=== PATIENT | male | born 1940 | race Caucasian/White ===

== ENCOUNTER 2021-10-13 20:24 | Inpatient (IN) | payer OTHER, MEDICARE ==
[~2021-10-13] VITALS: Ht 180.3 cm; Wt 74.0 kg
[2021-10-13 21:07] LABS: BASO % 0.2 % (0.0-2.0); GRAN # 15.1 K/mm3 (1.4-6.5); GRAN % 87.7 % (42.2-75.2); HEMOGLOBIN 12.6 g/dl (13.5-18.0); LYMPH # 0.8 K/mm3 (1.2-3.4); LYMPH % 4.6 % (20.0-51.0); MEAN CELL VOLUME 90 fl (80.0-100.0); MEAN CORPUSCULAR HEMOGLOBIN 31 pg (27-31); MEAN CORPUSCULAR HGB CONC 34 g/dl (33.0-37.0); MEAN PLATELET VOLUME 11.8 fl (7.4-10.4); MONO # 1.2 K/mm3 (0.1-0.6); PLATELET COUNT 268 K/mm3 (130-400); RED BLOOD COUNT 4.06 M/mm3 (4.20-5.60); REDCELL DISTRIBUTION WIDTH-CV 12.2 % (11.5-14.5)
[2021-10-13 21:14] LABS: HEMATOCRIT 36.6 % (42.0-52.0)
[2021-10-13 21:31] LABS: ALBUMIN 3.5 gm/dL (3.4-4.8); BILIRUBIN,TOTAL 1.1 mg/dL (0.2-1.2); CALCIUM 7.8 mg/dL (8.4-10.2); CREATININE, serum 2.94 mg/dL (0.72-1.25); POTASSIUM 3.6 mmol/L (3.5-4.5); TOTAL PROTEIN 6.2 gm/dL (6.2-8.1)
[2021-10-13 22:12] LABS: COLLECTION METHOD CLEAN CATCH
[2021-10-13 22:19] LABS: MUCOUS Present (NOT PRESENT); PH 5 (5-8); SQUAMOUS EPITHELIAL 0-2 /hpf (0-10); URINE APPEARANCE Hazy (CLEAR/HAZY); URINE BACTERIA None Seen /hpf (NONE SEEN); URINE BILIRUBIN Negative (NEGATIVE); URINE BLOOD 3+ (NEGATIVE); URINE COLOR Yellow (YELLOW); URINE GLUCOSE 3+ (NEGATIVE); URINE KETONE 2+ (NEGATIVE); URINE LEUKOCYTE ESTERASE Negative (NEGATIVE); URINE NITRATE Negative (NEGATIVE); URINE PROTEIN(semi-quant) 1+ (NEGATIVE); URINE RBC 0-2 /hpf (0-2); URINE UROBILINOGEN Negative (NEGATIVE)
--- NOTE | 2021-10-13 22:47 | NUR ---
Report received from ED nurseLissett.
[2021-10-13 23:00] VITALS: BP 83/57; PULSE 116; TEMP 98.3
--- NOTE | 2021-10-13 23:00 | NUR ---
Patient arrives to ICU room 7 via ED stretcher. Patient is not alert. He is obtunded, unresponsive to verbal stimuli, responding only with withdrawal to pain. He does not open eyes to speech or painful stimuli and he is non-verbal at this time. Patient arrives on room air, satting 100%, although he is extremely sonorous with respirations mid 20s, low 30s. Other vital signs within normal limits. A 16Fr samaniego catheter is in place draining clear yellow urine. IV antibiotics finishing as patient arrives. He has an 18G peripheral to the left wrist and a 20G peripheral to the right hand. Labs immediately obtained upon arrival. Initial blood glucose via lab is 674; insulin drip initiated. Esperanza, hospitalist, aware of patient's arrival and is at bedside. Patient brought in by friend, Ace Ruggiero, who is not present at time of patient's arrival to the ICU. No other friend/family contact on chart at this time. Patient unable to answer questions regarding allergies, history or vaccination status.
[2021-10-13 23:36] LABS: CALCIUM 7.9 mg/dL (8.4-10.2); CREATININE, serum 2.77 mg/dL (0.72-1.25); MAGNESIUM 2.5 mg/dL (1.6-2.6); POTASSIUM 3.9 mmol/L (3.5-4.5)
[2021-10-14] VITALS (553 sets, daily range): BP systolic 114–134; BP diastolic 53–84; PULSE 91–117; TEMP 98.4–100.7; O2SAT 85–100
--- NOTE | 2021-10-14 01:30 | NUR ---
This RN called Dr. Ruggiero who brought patient into ER and has rapport and friendship with patient. Asked Dr. Ruggiero if he had any contact information for family members of patient or if patient had living will or DPOA. Dr. Ruggiero stated he was unsure of patient code status, living will or DPOA. Also stated patients has siblings that live out of state and didn't have their contact information. Stated that he would attempt to call the person that lives with patient and see if he can get family contact information for hospital.
[2021-10-14 01:34] LABS: ARTERIAL BLD GAS O2 SATURATION 89.6 % (92-100); ARTERIAL BLD GAS TCO2 CT 15.9; ARTERIAL BLOOD GAS BASE EXCESS -9.7 (-2-2); ARTERIAL BLOOD GAS PCO2 29.7 mmHg (35-45); ARTERIAL BLOOD GAS PO2 61.2 mmHg (80-100); ARTERIAL BLOOD GAS pH 7.32 (7.35-7.45)
--- NOTE | 2021-10-14 02:00 | NUR ---
At approximately 0110, notified by tablet technician patient's HR irregular, alternating between ST and afib RVR with a rate up to the 160s at times. Excessive ectopy and PVCs noted in rhythm. Patient admitted with sonorous respirations, however, this RN noted patient's respirations to be becoming more labored with use of excessory muscles. RT, Radha notified of concerns at 0117, requesting that an EKG also be obtained. [facility] physician, Dr. Carcamo notified at 0127 of the above. Received orders for ABG, EKG, and troponin. This RN expressed concerns of potential intubation. RT obtaining blood gas at 0130 when patient's breathing effort rapidly declined with O2 saturation noted to begin dropping. Esperanza, hospitalist, notified at 0132; patient's oxygen saturation 79% at time of call. Esperanza contacted ER physician Dr. Goff for rapid intubation. Patient intubated with a 7.5 ET tube, located 24 at the lip, at 0145. See EMAR for RSI medication administration. OG placed and chest xray obtained to confirm placement. Vent settings at 0216 are 45% FiO2, PEEP 8, rate 16, with tidal volume of 430. Patient receiving fentanyl and propofol for sedation.
[2021-10-14 02:28] LABS: CALCIUM 7.7 mg/dL (8.4-10.2); CREATININE, serum 2.44 mg/dL (0.72-1.25); POTASSIUM 4.2 mmol/L (3.5-4.5)
[2021-10-14 04:04] LABS: GASTROCCULT POSITIVE; pH GASTRIC CONTENTS 1
[2021-10-14 04:30] LABS: ARTERIAL BLD GAS O2 SATURATION 97.9 % (92-100); ARTERIAL BLD GAS TCO2 CT 17.8; ARTERIAL BLOOD GAS BASE EXCESS -6.8 (-2-2); ARTERIAL BLOOD GAS HCO3 16.9 meq/L (22-26); ARTERIAL BLOOD GAS PO2 110.5 mmHg (80-100); ARTERIAL BLOOD GAS pH 7.38 (7.35-7.45)
[2021-10-14 05:33] LABS: BASO # 0.1 K/mm3 (0.0-0.2); GRAN # 11.9 K/mm3 (1.4-6.5); GRAN % 83.8 % (42.2-75.2); HEMOGLOBIN 11.9 g/dl (13.5-18.0); LYMPH # 1.1 K/mm3 (1.2-3.4); LYMPH % 7.9 % (20.0-51.0); MEAN CELL VOLUME 86 fl (80.0-100.0); MEAN CORPUSCULAR HEMOGLOBIN 32 pg (27-31); MEAN CORPUSCULAR HGB CONC 37 g/dl (33.0-37.0); MEAN PLATELET VOLUME 11.2 fl (7.4-10.4); MONO % 6.9 % (1.7-9.3); PLATELET COUNT 212 K/mm3 (130-400); RED BLOOD COUNT 3.78 M/mm3 (4.20-5.60); REDCELL DISTRIBUTION WIDTH-CV 12.1 % (11.5-14.5)
[2021-10-14 05:34] LABS: HEMATOCRIT 32.4 % (42.0-52.0)
[2021-10-14 05:50] LABS: CALCIUM 7.7 mg/dL (8.4-10.2); CREATININE, serum 2.32 mg/dL (0.72-1.25); POTASSIUM 4.1 mmol/L (3.5-4.5)
--- NOTE | 2021-10-14 05:57 | NUR ---
Patient intubated less than 6 hours ago. No sedation vacation.
--- NOTE | 2021-10-14 07:44 | NUR ---
ALARMS CHECKED AND WORKING.
--- NOTE | 2021-10-14 09:24 | NUR ---
brush worker contacted Effie geriatric social work professor at the [facility] and requested advance directives, son's information, and medical records be faxed to ICU. Will await her call to see what information they have. Worker contacted patient's sister, Dayanna in [place], [place] #[phone] and provided information on attempts to establish legal next of kin as patient is currently ventilated. Dayanna states she believes that patient is and has 1 living son (Gabriel Mejia) and 1 son. Dayanna stated that patient has 2 sisters and 2 brothers living. Dayanna will contact her sister to see if they can produce any further information about Gabriel. Dayanna stated that patient has been estranged from all of the family members and that she last had a brief conversation with hubert at [facility]. Dayanna is aware that if written advance directives and son cannot be located, the siblings are decision makers in patient's absence to do so. Worker met with Dr Ruggiero, patient's retired primary care provider and personal friend and provided information on legal next of kin.
--- NOTE | 2021-10-14 10:15 | NUR ---
Rosa with [facility] in [facility] confirms that they do not have any advance directives, no information on patient's son. Rosa provided the number to Itz (brother) [phone]. Rosa will request that the [place] clinical team fax updates to the ICU.
--- NOTE | 2021-10-14 10:16 | NUR ---
Patient currently on mechanical ventilator. Dr. Ruggiero present at patient's bedside and is awaiting to speak with the doctor. Patient lives in [place].Patient has (1) roommate named Avery ([phone]) and he doctor at the [facility]. Patient has two sisters: Dayanna ([phone]) located in [place] Linda ([phone]) located in [place] PATSY Castanon contacts Dayanna who states that the patient has (1) living child named Gabriel Mejia who the patient is estranged from. In addition he also has (2) brothers. Per Dayanna, Gabriel's location is unknown and she does not have a contact phone number for him. Dayanna states that due to Linda's health problems, she is going to let her sleep a little bit and then reach out to her. Dayanna will call us back once she speaks with Linda. Dayanna states " He has always said that when he dies, everything will go to Avery". PATSY Castanon reaches out to Rosa ([facility]) and requests patient's health history, medications and any DPOA-HC paperwork on the patient. This contact's the patient's roommate Avery for more information. Avery reports that he does not have any DPOA-HC paperwork and is unaware of the patient ever creating any. States that they have verbally talked about it but that they had not gotten around to formally creating one. Avery states that he and the patient's sister had been talking this morning and that she told him what she told PATSY Louise that "everything falls to Avery".Education provided to Avery that if nothing has been legally established listing him as the patient's DPOA-HC, that he is not the patient's HC agent and that legally it falls to the patient's bloodline. Avery verbalizes his understanding of the above. Avery states that the patient has never mentioned Christopher to him and that he was unaware that the patient had a child. Avery is in possession of the patient's phone and was unable to find any contact information for Gabriel. Avery does remember the patient mentioning "something about someone living in [place]", but could not provide who the patient was speaking about.
[2021-10-14 11:04] LABS: CALCIUM 7.7 mg/dL (8.4-10.2); CREATININE, serum 2.07 mg/dL (0.72-1.25); POTASSIUM 3.2 mmol/L (3.5-4.5)
[2021-10-14 11:15] LABS: TROPONIN-I 1.752 ng/mL (0.00-0.033)
--- NOTE | 2021-10-14 14:41 | NUR ---
PTs opening eyes and responding to name. PT is coughing against ventilator sedation then titrated appropriately per order
--- NOTE | 2021-10-14 16:06 | NUR ---
RT NOT AVAIL
--- NOTE | 2021-10-14 20:09 | NUR ---
Assessment complete and charted. Intubated with minimal response. Repositioned. Oral care complete.
[2021-10-15] VITALS (561 sets, daily range): BP systolic 115–141; BP diastolic 57–73; PULSE 108–118; TEMP 98.3–98.8; O2SAT 33–100
[2021-10-15 05:01] LABS: ARTERIAL BLD GAS TCO2 CT 20.5; ARTERIAL BLOOD GAS BASE EXCESS -4.6 (-2-2); ARTERIAL BLOOD GAS HCO3 19.5 meq/L (22-26); ARTERIAL BLOOD GAS PCO2 33.2 mmHg (35-45); ARTERIAL BLOOD GAS PO2 93.4 mmHg (80-100); ARTERIAL BLOOD GAS pH 7.39 (7.35-7.45)
[2021-10-15 06:31] LABS: CALCIUM 7.6 mg/dL (8.4-10.2); CREATININE, serum 1.88 mg/dL (0.72-1.25); POTASSIUM 3.8 mmol/L (3.5-4.5)
--- NOTE | 2021-10-15 07:23 | NUR ---
Report given to NURY Carvalho
--- NOTE | 2021-10-15 10:45 | NUR ---
PT PLACED ON CPAP TRIAL 5/5 35% AT 0815 AND WAS VERY SUCCESFUL. EXTUBATION WAS AT 1017 AND PT PLACED ON 5LOM AND THEN WEANED TO ROOM AIR WHERE SATURATIONS WERE GREATER THAN 97%.
--- NOTE | 2021-10-15 11:00 | NUR ---
Dr. Kingsley stopped sedation this morning in order to assess patient's mental status and ability to spontaneously breathe. Patient was awake and alert and was extubated at 1017 with no complications.
[2021-10-15 11:06] LABS: HEMOGLOBIN 10.9 g/dl (13.5-18.0); MEAN CORPUSCULAR HEMOGLOBIN 32 pg (27-31); MEAN CORPUSCULAR HGB CONC 35 g/dl (33.0-37.0); MEAN PLATELET VOLUME 12.8 fl (7.4-10.4); PLATELET COUNT 168 K/mm3 (130-400); RED BLOOD COUNT 3.43 M/mm3 (4.20-5.60)
[2021-10-15 11:13] LABS: HEMATOCRIT 31.2 % (42.0-52.0); MEAN CELL VOLUME 91 fl (80.0-100.0)
[2021-10-15] MEDS ORDERED: PROSCAR 5MG5 MG PO (17:43)
[2021-10-15] MEDS ORDERED: ASPIRIN 32325 MG/TAB PO (17:49)
[2021-10-15] MEDS ORDERED: GLUCOTROL 5M5 MG/TAB PO (17:51)
[2021-10-15] MEDS ORDERED: ADVIL200 MG PO (17:52)
[2021-10-15] MEDS ORDERED: PRINIVIL10 MG PO (18:00)
[2021-10-15] MEDS ORDERED: GLUCOPHAGE1000 MG PO (18:01)
[2021-10-15] MEDS ORDERED: ZOCOR 20MG20 MG PO (18:02)
--- NOTE | 2021-10-15 20:42 | NUR ---
Patient alert but confused. Attempted to climb out of bed. Bed alarm in place. Easily redirected. Denies needs. Repositioned. Call light in reach.
[2021-10-16] VITALS (331 sets, daily range): BP systolic 123–142; BP diastolic 56–81; PULSE 74–104; TEMP 97.5–98.9; O2SAT 31–100
[2021-10-16 04:47] LABS: MEAN CELL VOLUME 92 fl (80.0-100.0); MEAN CORPUSCULAR HGB CONC 34 g/dl (33.0-37.0); MEAN PLATELET VOLUME 11.5 fl (7.4-10.4); PLATELET COUNT 164 K/mm3 (130-400); RED BLOOD COUNT 3.12 M/mm3 (4.20-5.60)
[2021-10-16 04:49] LABS: HEMATOCRIT 28.7 % (42.0-52.0); HEMOGLOBIN 9.8 g/dl (13.5-18.0); MEAN CORPUSCULAR HEMOGLOBIN 31 pg (27-31)
[2021-10-16 05:02] LABS: CREATININE, serum 1.32 mg/dL (0.72-1.25)
--- NOTE | 2021-10-16 07:27 | NUR ---
Report given to NURY Mata
--- NOTE | 2021-10-16 09:18 | NUR ---
REPORT RECEIVED FROM NURY PADGETT. PT HAS BILATERAL SOFT MITTS IN PLACE DUE TO BEING CONFUSED AND PULLING AT LINES. FC TO DEPENDENT DRAINAGE. LANETTE PICC IN PLACE AND INFUSING MEDICAITON; SEE GTT FLOW SHEET. VITAL SIGNS STABLE.
--- NOTE | 2021-10-16 09:52 | NUR ---
Patient alert to person and place, but believes that it is 1975 and trys to get out of bed to "go home". Patient is able to name off sibilings names but not amelia.Due to patient's confusion DPOA-HC not completed. Patient is planned for a Loop procedure and MRI today. RN to obtain consent from Dayanna ([phone]) for procedures and patient will move to medical unit. Phone call returned to Dr. Ruggiero who states he has his N and MA number. Confirmed with him that the patient's home has running water and electricity. Informed him that the hospital has that information. Concerns of Dr. Ruggiero's statement of "I won't perscribe anything to him, i can, i have a license to, but i will leave that to the [facility]" expresses to hospitalist. Referral made to Saba in [facility] for post acute rehab.
--- NOTE | 2021-10-16 14:05 | NUR ---
HEPARIN STOPPED AT THIS TIME PER DR. LEDEZMA'S ORDER.
--- NOTE | 2021-10-16 15:16 | NUR ---
REPORT GIVEN TO NURY MAYEN. TIARRA WILL BE PT'S PRIMARY NURSE ON MEDICAL FLOOR. PT'S CHART AND ORDER'S REVIEWED AND ALL QUESTIONS ANSWERED.
--- NOTE | 2021-10-16 15:48 | NUR ---
PT BROUGHT TO ROOM 354. TRANSFERED FROM WHEELCHAIR TO BED WITH 1 ASSIST. PT WAS SETTLED. SOFT MITT RESTRAINTS PLACED BACK ON HANDS. HANDOFF WAS DONE WITH NURY MAYEN.
--- NOTE | 2021-10-16 17:58 | NUR ---
PT ARRIVED TO ROOM 354 FROM ICU. VSS. PT ALERT BUT NOT ORIENTED. IVF INFUSING VIA PICC. MITTS ON. ORIENTED PT TO ROOM AND CALL LIGHT. DENIES NEEDS AT THIS TIME.
--- NOTE | 2021-10-16 20:00 | NUR ---
Initial shift assessment done- very confused- trying to get out of bed-tried to stand him up and he could not use the urinal so put on BSC with 2 assists-- did void small amount and had a soft stool- uncooperative- not following directions- back to bed- mitts on. PICC to LANETTE with LR at 75cc/hr. Tele on.
--- NOTE | 2021-10-16 22:00 | NUR ---
Remains very confused- trying to get out of bed every 15 minutes- states he has to go to the bathroom or just wants to get up-- tried to reorient,, is voiding small amounts but also having some soft stool each time up- mitts on- pt trying to get his Tele off.
--- NOTE | 2021-10-16 23:55 | NUR ---
Pt getting out of bed consistently- now found patient with Mitts pulled off and patients PICC line is totally out- will call Julieta for orders to help him calm down so he can sleep.
--- NOTE | 2021-10-17 01:00 | NUR ---
Did call Julieta SANCHEZ and informed of his agitation and PICC line pulled out-- Seraquel 25mg given at this time , also pt was bladder scanned and less than 75cc in bladder- Did get up to BSC commode and voided 100cc just a few minutes ago- ,no more soft stool for past hour. INT started to left wrist area,22g- IV fluids infusing at 75cc/hr. Mitts on .
[2021-10-17 04:13] VITALS: BP 135/62; PULSE 75; TEMP 97.9
--- NOTE | 2021-10-17 04:51 | NUR ---
Still getting up to BSC about every hour but is resting in between after the Seraquel was given, Tele on, Roel on- remains confused-
[2021-10-17 06:26] LABS: HEMOGLOBIN 10.6 g/dl (13.5-18.0); MEAN CELL VOLUME 90 fl (80.0-100.0); MEAN CORPUSCULAR HEMOGLOBIN 31 pg (27-31); MEAN CORPUSCULAR HGB CONC 35 g/dl (33.0-37.0); MEAN PLATELET VOLUME 11.4 fl (7.4-10.4); PLATELET COUNT 152 K/mm3 (130-400); RED BLOOD COUNT 3.39 M/mm3 (4.20-5.60); REDCELL DISTRIBUTION WIDTH-CV 12.7 % (11.5-14.5)
[2021-10-17 06:30] LABS: HEMATOCRIT 30.6 % (42.0-52.0)
[2021-10-17 06:46] LABS: CALCIUM 8.2 mg/dL (8.4-10.2); CREATININE, serum 1.32 mg/dL (0.72-1.25); MAGNESIUM 1.7 mg/dL (1.6-2.6); POTASSIUM 4.2 mmol/L (3.5-4.5)
[2021-10-17 08:00] VITALS: BP 132/59; PULSE 78; TEMP 98
--- NOTE | 2021-10-17 09:03 | NUR ---
Primary care nurse contacted Dr. Murguia. no PICC placement. continue with PIVs
--- NOTE | 2021-10-17 09:29 | NUR ---
Patient has set-off bed alarm multiple times attempting to get up. Attempted to pull out IV. Will only sleep for about 30mins before getting up again. Decided by charge nurse that a sitter would be a good option. PCT currently in the room.
--- NOTE | 2021-10-17 10:36 | NUR ---
Patient pulled out IV. Currently in the shower to clean up blood.
[2021-10-17 11:22] VITALS: BP 125/62; PULSE 80; TEMP 97.8
--- NOTE | 2021-10-17 13:30 | NUR ---
Dr Ruggiero contacts this health and social care teacher and discusses attempts to find out what [employer] patient's uses to try and figure out how to pay bills. Dr Ruggiero also found out that patient had not filled medications at [facility], since 2019, had received a flu shot from [facility], however had not filled any prescriptions through them as well as ethology. Worker discussed discharge planning options and possible need for a guardian.
--- NOTE | 2021-10-17 14:11 | NUR ---
Dr. Murguia notified shortly after patient pulled IV out. Fluids were discontinued and Dr. Murguia said a new IV did not need to be placed at this time, since the patient has good oral intake. Dr. Murguia and this RN assessed the patient bottom together. There are multiple reddened/bleeding areas. It appears as though there were blisters present, and they had popped open. There is still 1 blister intact. Silver antimicrobial ointment was applied to the area and an allevyn was placed by Dr. Murguia. Patient has been resting in bed; This RN is allowing the patient to rest to keep the patient from growing agitated.
[2021-10-17 16:05] VITALS: BP 131/65; PULSE 79; TEMP 98.1
--- NOTE | 2021-10-17 16:22 | NUR ---
[facility] declines patient. SNF referrals faxed to the following: [facility], [facility], [facility], [facility], [facility] and [facility].
[2021-10-17 20:01] VITALS: BP 117/55; BP 146/78; PULSE 71; PULSE 75; TEMP 98.2; TEMP 98.7
[2021-10-17 23:57] VITALS: BP 124/72; PULSE 78; TEMP 98.1
[2021-10-18 03:59] VITALS: BP 131/59; PULSE 81; TEMP 98.2
--- NOTE | 2021-10-18 06:00 | NUR ---
ASSESSMENT COMPLETE FOR THIS SHIFT. PT RESTING IN BED SLEEPING. PT A&O X 2. PT DENIED PAIN, PALPITATIONS, N,V, SOB OR DIZZINESS. PT HAD SEVERAL BOUTS OF DIARRHEA THIS SHIFT. GI PANEL NEG. PT CONSTANTLY TRYING TO GET UP BY HIMSELF TO THE RESTROOM, AND NEEDS TO CONSTANTLY BE REMINDED TO USE HIS CALL LIGHT. PT REQUESTED MILK ALL SHIFT. THICKED MILK GIVEN. PT EXPRESSED NO OTHER NEEDS AT THIS TIME. WILL KEEP AN EYE ON PT. BED ALARM ON. CALL LIGHT WITHIN REACH.
[2021-10-18 07:17] VITALS: BP 131/60; PULSE 91; TEMP 97.9
[2021-10-18 07:25] LABS: CALCIUM 8.2 mg/dL (8.4-10.2); CREATININE, serum 1.32 mg/dL (0.72-1.25); POTASSIUM 4.1 mmol/L (3.5-4.5)
--- NOTE | 2021-10-18 08:00 | NUR ---
Patient set off bed alarm to use the bathroom, patient ambulated with the walker to the bathroom. A&Ox4. VSS. No IV access, doctor aware. Denies pain and discomfort. Patient having diarrhea. Independent with feeds. No further needs expressed. Call light within reach. Bed alarm on
[2021-10-18 08:25] LABS: HEMOGLOBIN 10.6 g/dl (13.5-18.0); MEAN CELL VOLUME 92 fl (80.0-100.0); MEAN CORPUSCULAR HEMOGLOBIN 31 pg (27-31); MEAN CORPUSCULAR HGB CONC 34 g/dl (33.0-37.0); MEAN PLATELET VOLUME 11.9 fl (7.4-10.4); PLATELET COUNT 167 K/mm3 (130-400); REDCELL DISTRIBUTION WIDTH-CV 12.6 % (11.5-14.5)
[2021-10-18 08:30] LABS: HEMATOCRIT 31.1 % (42.0-52.0)
[2021-10-18 16:00] VITALS: BP 113/66; PULSE 85; TEMP 97.7
--- NOTE | 2021-10-18 17:47 | NUR ---
Patient has had several loose stools and has been setting off the bed alarm and not waiting on nursing staff to assist with ambulating to the bathroom. Patient A&Ox3. VSS. No IV access, doctor aware. Denies pain, reports an upset stomach. Patient instructed to decrease milk intake. No further needs expressed. Call light within reach. Bed alarm on
[2021-10-18 19:44] VITALS: BP 139/61; PULSE 73; TEMP 98.4
[2021-10-18 23:58] VITALS: BP 142/63; PULSE 79; TEMP 98
[2021-10-19 04:03] VITALS: BP 135/90; PULSE 68; TEMP 97.6
--- NOTE | 2021-10-19 07:15 | NUR ---
ASSESSMENT COMPLETE FOR THIS SHIFT. PT UP TO TO RESTROOM WITH DIARRHEA WHEN I WALKED IN. I ASKED PT IF HE WOULD LIKE SOME IMODIUM. PT STATED YES. IMODIUM GIVEN. DIARRHEA SYMPTOMS IMPROVED. PT DENIED PAIN, PALPITATIONS, N,V, SOB OR DIZZINESS. PT CONTINUES TO GET UP TO THE RESTROOM, WITHOUT WAITING/CALLING FOR HELP. BED ALARM REMAINS ON. PT EXPRESSED NO OTHER NEEDS AT THIS TIME. CALL LIGHT WITHIN REACH.
[2021-10-19 08:02] VITALS: BP 117/68; PULSE 70; TEMP 97.9
--- NOTE | 2021-10-19 08:52 | NUR ---
PT ON POTASSIUM PROTOCOL. NO LABS WERE DRAWN. ORDER PLACED FOR LABS PER PROTOCOL. CALL CALLED AND INFORMED OF ORDER.
[2021-10-19 11:33] VITALS: BP 102/35; PULSE 69; TEMP 98
--- NOTE | 2021-10-19 11:57 | NUR ---
PT UP TO BATHROOM VIA SELF. PT STATES THAT HE IS NOT HAVING ANY PAIN AT THIS TIME. PT STATES THAT HE WOULD LIKE TO HAVE SOME BREAKFAST. CALLED KITCHEN AND IT WAS ORDERED. PT STATES THAT HE IS NOT HAVING ANY DIARRHEA. NO OTHER NEEDS WERE VOICED AT THIS TIME.
--- NOTE | 2021-10-19 16:21 | NUR ---
PT SLEEPING. NO S/S OF DISTRESS/PAIN AT THIS TIME. CALL LIGHT IS WITHIN REACH.
[2021-10-19 17:49] VITALS: BP 121/58; PULSE 67; TEMP 97.9
--- NOTE | 2021-10-19 18:30 | NUR ---
Report received from NURY Galvin; patient slightly confused but this appears to be baseline but is doing well. Patient is waiting for placement at this point as it is unclear where he is going upon discharge; patient resting in room.
--- NOTE | 2021-10-19 18:51 | NUR ---
PT LAYING IN BED ASLEEP. NO S/S OF DISTRESS OR PAIN. CALL LIGHT IS WITHIN REACH.
[2021-10-19 19:47] VITALS: BP 124/58; PULSE 72; TEMP 99.1
[2021-10-20] VITALS (7 sets, daily range): BP systolic 102–127; BP diastolic 42–58; PULSE 67–100; TEMP 98.2–98.8
--- NOTE | 2021-10-20 03:00 | NUR ---
Report given from Maia RN- will take over care at this time,, Pt up to bathroom with standby assist- steady, does not want the lights on- oriented to person and place, but confused as to the overall situation- Tele on,vitals have been stable tonight, no requests, back to bed- wants it dark with the door closed- bed alarm on.
--- NOTE | 2021-10-20 05:50 | NUR ---
Has been resting the past few hours- no requests-VSS,,Up to bathroom again, voiding-steady gait
[2021-10-20 07:01] LABS: BASO % 0.2 % (0.0-2.0); EOS # 0.1 K/mm3 (0.0-0.7); EOS % 1.1 % (0.0-4.0); GRAN # 3.9 K/mm3 (1.4-6.5); GRAN % 60.9 % (42.2-75.2); HEMOGLOBIN 10.4 g/dl (13.5-18.0); LYMPH # 1.7 K/mm3 (1.2-3.4); MEAN CELL VOLUME 89 fl (80.0-100.0); MEAN CORPUSCULAR HEMOGLOBIN 31 pg (27-31); MEAN CORPUSCULAR HGB CONC 35 g/dl (33.0-37.0); MEAN PLATELET VOLUME 11.3 fl (7.4-10.4); MONO # 0.7 K/mm3 (0.1-0.6); MONO % 11.3 % (1.7-9.3); PLATELET COUNT 192 K/mm3 (130-400); RED BLOOD COUNT 3.38 M/mm3 (4.20-5.60); REDCELL DISTRIBUTION WIDTH-CV 12.2 % (11.5-14.5)
[2021-10-20 07:15] LABS: CALCIUM 8.1 mg/dL (8.4-10.2); CREATININE, serum 1.33 mg/dL (0.72-1.25); POTASSIUM 3.9 mmol/L (3.5-4.5)
--- NOTE | 2021-10-20 08:30 | NUR ---
Shift assessment complete. Pt resting in bed. A&Ox4 but forgetful. Heart RRR. Lungs CTA. Vitals stable. Blood sugars remain elevated in 200s-300s. Hospitalist team notified. Pt denies pain or other concerns/needs at this time. Continuing to monitor.
--- NOTE | 2021-10-20 15:19 | NUR ---
The patient is alert and oriented. The patient is walking 300 ft with PT. PATSY met with the patient to review discharge plan and discussed going to SNF. The patient reports that he would prefer to go home with home health. PATSY attempted to contact PT to inquire if the patient would be safe to return home. They had left for the day. SW to staff with PT in the morning. PATSY faxed updates to [facility], [facility], [facility], and [facility]. Awaiting screens. PATSY inquired about a DPOA-HC with the patient. The patient is interested in completing a DPOA-HC. He verbalized that he would like to designate his sisters: Dayanna and Linda. We do not have their last names or Linda's phone number. The patient did not have that information either. PATSY attempted to contact Dayanna to obtain that information. PATSY left her a voiemail.
--- NOTE | 2021-10-20 18:10 | NUR ---
Pt up in room independently today. Gait steady. No issues swallowing reported or noted. Resting in bed at this time w/o complaint.
--- NOTE | 2021-10-21 01:31 | NUR ---
ASSESSMENT COMPLETE FOR THIS SHIFT. PT UP TO THE RESTROOM WHEN I CAME IN FOR ASSESSMENT. PT DENIED PAIN, PALPITATIONS, N,V,D, SOB OR DIZZINESS. PT SEEMED A BIT RESTLESS TO NIGHT, TRIED TO WANDER INTO THE ROOM NEXT TO HIM AND HAS WALKED OUT OF HIS ROOM SEVERAL TIME TONIGHT. PT REDIRECTS EASILY. PT REQUESTED MILK TONIGHT, BUT GIVEN WATER INSTEAD. PT'S DIARRHEA STOPPED AFTER WE STOPPED GIVING HIM ALL THE MILK HE WAS REQUESTING. PT EXPRESSED NO OTHER NEEDS AT THIS TIME. CALL LIGHT WITHIN REACH.
[2021-10-21 04:10] VITALS: BP 97/66; PULSE 61; TEMP 99.1
[2021-10-21 07:00] VITALS: BP 102/40; PULSE 73; TEMP 98.7
--- NOTE | 2021-10-21 11:02 | NUR ---
Dayanna, at [facility], reports that they would require a DPOA-HC and want to make sure the patient's DPOA-HC's are involved. PATSY attempted to contact the patient's sister, Dayanna, this morning to follow up. SW left her a voicemail. PATSY then contacted the patient's sister, Cecille (ph#[phone]), and provided her with an update. Cecille reports that her sister is most likely not up for the day yet, but that her and Dayanna are agreeable with being the patient's DPOA-HC. Cecille states that her and her sister will be involved with care and are glad the patient is now wanting to do a DPOA-HC. She provided SW with her and her sister's last names and information. PATSY then met with the patient to update. The patient verbalized that he would still like to pursue with both his sisters being his DPOA-HC. He designated his sisters: Dayanna Paredes and Cecille Hurd. PATSY and the RN Student Instructor, Dena, witnessed the patient's signature. PATSY provided the patient with the original and some copies. PATSY placed a copy in the patient's chart. PATSY notifed Cecille and she requested that SW email her a copy. SW emailed her a copy of the DPOA-HC. PATSY notified and faxed updates and the DPOA-HC to [facility] and [facility]. Awaiting screens.
[2021-10-21 11:09] VITALS: BP 101/38; PULSE 74; TEMP 98.4
--- NOTE | 2021-10-21 11:32 | NUR ---
Danita, at [facility], reports that they have declined the patient.
--- NOTE | 2021-10-21 15:18 | NUR ---
Jaime, at [facility], reports that they have declined the patient because they are not in-network with his particular type of insurance. Dayanna, at [facility], reports that they are checking with the VA on the patient's benefits; to see if he has a long-term coverage or benefits through them. They do not feel like they will be able to skill the patient long. PATSY attempted to contact Laura at [facility] and [facility] to follow up on the referral. PATSY left her a voicemail. PATSY contacted the patient's other sister, Dayanna, and updated her on the discharge plan. PATSY discussed getting the patient applied for Medicaid. Dayanna reports that she has spoken to the patient and he is more coherent. She believes he would be able provide the information needed for the Medicaid application. PATSY consulted Halie with Financial Counseling. PATSY contacted and gave a referral to Fabian at [facility]. PATSY contacted and faxed a referral to Marilyn of [place], [facility], [facility], [facility], [facility], [employer], and Leena Ribera of [place]. Awaiting screens.
[2021-10-21 15:39] VITALS: BP 110/50; PULSE 95; TEMP 98.5
--- NOTE | 2021-10-21 15:42 | NUR ---
PATSY attempted to contact Rosa, [place] community mental health social worker, to inquire if the patient is service connected and would qualify for a [place] contract mcfp. SW left her a voicemail.
--- NOTE | 2021-10-21 15:46 | NUR ---
Paola, at [facility], reports that they do not have a bed right now and will not until some time next week.
--- NOTE | 2021-10-21 17:55 | NUR ---
INSULIN HELD DUE TO PT REPORTING NOT BEING HUNGRY AND BS WITHIN NORMAL LIMITS. PT DENIES PAIN, AOX4 BUT SOME ANSWERS TO QUESTIONS ARE NOT APPROPRIATE TO CONVERSATION. NEURO PERFORMED PER ORDER. NO OTHER NEEDS
[2021-10-21 20:43] VITALS: BP 116/61; PULSE 78; TEMP 98.1
[2021-10-21 23:55] VITALS: BP 121/62; PULSE 82; TEMP 98.1
--- NOTE | 2021-10-22 01:03 | NUR ---
ASSESSMENT COMPLETE FOR THIS SHIFT. PT RESTING IN BED NAPPING. PT DENIES PAIN, PALPITATIONS, SOB, N,V,D OR DIZZINESS. PT'S HAD AN UNEVENTFUL NIGHT SO FAR. PT EXPRESSED NO OTHER NEEDS AT THIS TIME. CALL LIGHT WITHIN REACH.
[2021-10-22 04:35] VITALS: BP 109/52; PULSE 90; TEMP 98.7
[2021-10-22 07:07] VITALS: BP 133/73; PULSE 80; TEMP 98.3
--- NOTE | 2021-10-22 08:25 | NUR ---
Dayanna, at [facility], reports that they got in touch with the MT rep and the patient is not service connected. She reports that the patient is already walking 300 ft, so they would not be able to skill the patient and they do not have any male beds available for long-term care. Dayanna reports that they have declined the patient.
[2021-10-22 10:58] LABS: CALCIUM 8.3 mg/dL (8.4-10.2); CREATININE, serum 1.49 mg/dL (0.72-1.25)
--- NOTE | 2021-10-22 11:07 | NUR ---
0715 - shift assessment computed. Pt alert. Glucose 233, waiting breakfast tray to administer sliding scale insulin. See MAR. Skin to bilate buttock slighty red, skin intact. Pt denies complaints of pain, call light within reach.
--- NOTE | 2021-10-22 11:11 | NUR ---
[facility]rupt[facility], at [facility], reports that they are full at this time.
--- NOTE | 2021-10-22 11:17 | NUR ---
calender worker helper spoke with Avery, friend/renter and confirmed that he works during the day. Avery states that patient was driving and paying his bills prior to becoming ill. Worker advised that patient will need nursing facility placement from the hospital.
[2021-10-22 11:23] VITALS: BP 128/48; PULSE 64; TEMP 98.8
--- NOTE | 2021-10-22 15:40 | NUR ---
Halie, with financial counseling, in with the patient now to complete the Medicaid application. Anna, at [facility], reports that she submitted the patient's information to the [facility]. [facility], [facility], [facility], and [facility] all report that they their DON's are out for the day or they have not been able to review the referral yet.
[2021-10-22 16:00] VITALS: BP 120/57; PULSE 73; TEMP 99
[2021-10-22 20:05] VITALS: BP 137/66; PULSE 94; TEMP 98.6
[2021-10-23] VITALS: BP 138/72; PULSE 73; TEMP 98.7
[2021-10-23 04:40] VITALS: BP 119/69; PULSE 86; TEMP 98.2
--- NOTE | 2021-10-23 04:42 | NUR ---
ASSESSMENT COMPLETE FOR THIS SHIFT. PT IN THE RESTROOM WHEN I WALKED IN FOR ASSESSMENT. PT DENIED PAIN, PALPITATIONS, SOB, N,V,D OR DIZZINESS. PT HAD AN UNEVENTFUL NIGHT SO FAR, FOR THE MOST PART. PT WOULD JUST WALK OUT OF HIS ROOM A LOT TO ASK FOR HOT CHOCOLATE OR THE TIME OR PUSH THE CALL LIGHT TO ASK THAT HE BE COVERED WITH HIS BLANKETS (THAT WERE ALREADY ON HIM...). WILL CONTINUE TO ANSWER PT'S QUESTIONS AND REQUESTS. CALL LIGHT WITHIN REACH.
[2021-10-23 08:00] VITALS: BP 96/54; PULSE 76; TEMP 98.5
--- NOTE | 2021-10-23 11:29 | NUR ---
PT IN BED. MORNING MEDICATIONS GIVEN BY JASEN STUDENT NURSE. SHIFT ASSESSMENT COMPLETED. PT DENIES ANY NEEDS AT THIS TIME. WILL CONTINUE TO MONITOR.
[2021-10-23 12:00] VITALS: BP 105/30; PULSE 83; TEMP 98
--- NOTE | 2021-10-23 12:56 | NUR ---
Vanessa, at [facility], reports that they are reviewing the referral; but would require a copy of the patient's COVID vaccine care, the Medicaid application, and that they would have to get the patient a local provider to follow them while there. OT notified PATSY that the patient would be okay to return home, but would need supervision with meds. OT plans to check with ST. PATSY notified the hospitalist. The hospitalist would like to see if [facility] can take, if not, plan will be to return home with his roommate and home health. PATSY contacted the patient's roommate, Avery, and reviewed the above. Avery reports that he works [phone], but he would continue to assist the patient. He states that he is cleaning up the patient's home now. Avery states that he does not have a copy of the patient's vaccine card. PATSY then contacted Dr. Ruggiero. He reports that he would be able to assist the patient with injections, if he returned home with them. He also obtained a copy of the patient's COVID vaccine card. PATSY notified and emailed the vaccine card to Vanessa at [facility]. Vanessa is going to work on finding a [employer] doctor that would follow the patient while there. Halie, financial counselor, reports that she is still working on the Medicaid application. She reports that the patient will just need to provide three months of bank statements. PATSY notified Avery and Dr. Ruggiero.
[2021-10-23 16:00] VITALS: BP 104/39; PULSE 79; TEMP 98.8
--- NOTE | 2021-10-23 17:38 | NUR ---
PT HAD UNEVENTFUL DAY. RESTING IN BED AT THIS TIME. BLOOD SUGARS STABLE AT THIS TIME.
[2021-10-23 20:06] VITALS: BP 110/58; PULSE 79; TEMP 98.7
[2021-10-24 00:14] VITALS: BP 112/53; PULSE 77; TEMP 98.3
[2021-10-24 05:15] VITALS: BP 128/36; PULSE 80; TEMP 99.3
--- NOTE | 2021-10-24 06:30 | NUR ---
ASSESSMENT COMPLETE FOR THIS SHIFT. PT RESTING IN BED WITH THE LIGHTS OUT. PT DENIED PAIN, PALPITATIONS, N,V,D, SOB OR DIZZINESS. PT CONTINUES TO BE UP MOST OF THE NIGHT, WALKING IN AND OUT OF HIS ROOM, ASKING FOR FOOD OR DRINK, THE TIME, AND TO COVER HIS FEET IN BED (WHICH ARE ALREADY COVERED). WILL CONTINUE TO MONITOR FOR SAFETY. CALL LIGHT WITHIN REACH.
[2021-10-24 07:09] VITALS: BP 132/49; PULSE 84; TEMP 97.7
--- NOTE | 2021-10-24 09:07 | NUR ---
PT REPORTING HE HASNT HAD A BM IN MANY WEEKS, REPORT FROM MANAGER PRIVACY NURSE WHEN HE DRINKS MILK HE HAS DIARRHEA. ASSESSMENT PERFORMED, CALL LIGHT WITHIN REACH, PT ANSWERS ORIENTATION QUESTIONS APPROPRIATELY, NO OTHER NEEDS
[2021-10-24] MEDS ORDERED: ASPIRIN 81M81 MG/TA2 PO (11:49)
[2021-10-24] MEDS ORDERED: TOPROL XL 25MG25 MG PO (11:49)
[2021-10-24] MEDS ORDERED: PROAIR HFA0.09 MG/AC IH (11:50)
[2021-10-24] MEDS ORDERED: GLUCOTROL 5M5 MG/TAB PO (11:51)
[2021-10-24] MEDS ORDERED: GLUCOPHAGE1000 MG PO (11:52)
[2021-10-24] MEDS ORDERED: PROTONIX 40MG T40 MG PO (11:53)
[2021-10-24] MEDS ORDERED: GLUCOSE TEST ST1 DEV MC ×2 (12:26→20:02)
[2021-10-24] MEDS ORDERED: LANCETS MC ×2 (12:26→20:02)
[2021-10-24] MEDS ORDERED: BD ALCOHOL1 SWA MC (12:26)
[2021-10-24] MEDS ORDERED: FREESTYLE PREC1 EAC5 MC ×2 (12:26→20:02)
--- NOTE | 2021-10-24 13:00 | NUR ---
PT REFUSING LUNCH AT THIS TIME, WILL HOLD INSULIN
[2021-10-24 13:40] VITALS: BP 124/63; PULSE 83; TEMP 98
--- NOTE | 2021-10-24 14:05 | NUR ---
PT EDUCATED ON NEW MEDICATIONS PERSCRIBED, EDUCATED PT HOW TO TAKE BS AND HAD PT TAKE HIS LUNCH TIME BS. EDUCATED TO TAKE DAILY. OTHER DISCHARGE EDUCATION PROVIDED, EDUCATED ON UPCOMING CARDIOLOGY APPT, EDUCATED ON FREQUENCY OF NEW MEDS, EDUCATED TO DISCONTINUE OLD MEDS LISTED UNDER DISCONTINUE CATEGORY, PT VERBALIZES UNDERSTANDING BUT IT IS UNCLEAR HOW MUCH THE PT COMPREHENDS DURING CONVERSATION. PT ESCORTED OUT VIA WHEELCHAIR WITH DR. HAILE. NO OTHER NEEDS
--- NOTE | 2021-10-24 14:45 | NUR ---
Vanessa, at [facility], reports that Dr. Winchester accepted to follow the patient while at their facility. She reports that they would be able to accept the patient, but she needs to check that they can take him today. PATSY updated the clinical team. The clinical team then rounded on the patient and reviewed going to SNF. The patient is now refusing to go to a SNF. The hospitalist is ready to discharge the patient today home with home health. PATSY met with the patient to follow up and review SNF. The patient continues to refuse SNF. PATSY presented and read the IM form outloud to him. The patient verbalized understanding and gave PATSY approval to sign the form on his behalf. PATSY provided him with a copy. PATSY contacted and faxed a referral to Belen at [facility]. Belen reports that they are able to accept the patient for services. Dr. Ruggiero was notified and he transported the patient home. PATSY contacted and updated the patient's sister/DPOA-HC, Dayanna. Dayanna is in agreement to the plan. The patient discharged back home today, 10/24, with home health services for long term/PT/OT from [facility]. PATSY notified and faxed orders to Belen at [facility]. PATSY made an APS report. Intake ID#[id number]
== END 2021-10-24 15:13 | disposition home health service (06) | DRG 981 ==
LOC: COL.ER 20:24 → MEDICAL 22:32 → ICU 22:32 → MEDICAL 10-16 15:47 → ICU 10-16 15:47 → MEDICAL 10-16 22:45
PROVIDERS: Internal Medicine; Internal Medicine Critical Care Medicine; Internal Medicine Pulmonary Disease; Personal Emergency Response Attendant; Physician Assistant; Student in an Organized Health Care Education/Training Program; ADMIT Internal Medicine
PROC: 0JH632Z Insertion of Monitoring Device into Chest Subcutaneous Tissue and Fascia, Percutaneous Approach (ICD-10-PCS; principal; 2021-10-13)
PROC: 5A1945Z Respiratory Ventilation, 24-96 Consecutive Hours (ICD-10-PCS; 2021-10-13)
PROC: 0BH17EZ Insertion of Endotracheal Airway into Trachea, Via Natural or Artificial Opening (ICD-10-PCS; 2021-10-13)
PROC: 02HV33Z Insertion of Infusion Device into Superior Vena Cava, Percutaneous Approach (ICD-10-PCS; 2021-10-14)
DX: E11.10 Type 2 diabetes mellitus with ketoacidosis without coma (principal); J96.01 Acute respiratory failure with hypoxia; G93.41 Metabolic encephalopathy; K29.71 Gastritis, unspecified, with bleeding; I21.A1 Myocardial infarction type 2; I50.21 Acute systolic (congestive) heart failure; N17.9 Acute kidney failure, unspecified; E78.00 Pure hypercholesterolemia, unspecified; I48.91 Unspecified atrial fibrillation; E86.0 Dehydration; I49.3 Ventricular premature depolarization; I11.0 Hypertensive heart disease with heart failure; I65.23 Occlusion and stenosis of bilateral carotid arteries; Z20.822 Contact with and (suspected) exposure to COVID-19; Z79.84 Long term (current) use of oral hypoglycemic drugs
CPT/HCPCS: 99223-AI; 99231-AI; 99232-AI; 99233-AI; 99239; A6248; C1751; C9113; J0456; J0696; J1644; J1815; J2543; J2704; J3010; J3480; J7030; J7050; J7120

== ENCOUNTER 2024-06-15 08:09 | Day surgery (SDC) | payer OTHER ==
[~2024-06-15] VITALS: Wt 79.1 kg
[2024-06-15] VITALS (290 sets, daily range): BP systolic 99–136; BP diastolic 40–70; PULSE 57–64; TEMP 97.6–98.7; O2SAT 54–100
[~2024-06-15 08:09] MED LIST: ADVIL200 MG PO; ASPIRIN 32325 MG/TAB PO; ASPIRIN 81M81 MG/TA2 PO; BD ALCOHOL1 SWA MC; FREESTYLE PREC1 EAC5 MC; GLUCOPHAGE1000 MG PO; GLUCOSE TEST ST1 DEV MC; GLUCOTROL 5M5 MG/TAB PO; HYTRIN 2MG CAPSU2 MG PO; IMDUR 30MG30 MG/TAB PO; LANCETS MC; LIPITOR 80MG80 MG PO; NESINA12.5 PO; PRILOSEC 20MG20 MG PO; PRINIVIL10 MG PO; PROAIR HFA0.09 MG/AC IH; PROSCAR 5MG5 MG PO; PROTONIX 40MG T40 MG PO; TOPROL XL 25MG25 MG PO; ZOCOR 20MG20 MG PO
[2024-06-15 09:37] LABS: HEMOGLOBIN 10.4 g/dl (13.5-18.0); MEAN CELL VOLUME 87 fl (80.0-100.0); MEAN CORPUSCULAR HEMOGLOBIN 30 pg (27-31); MEAN CORPUSCULAR HGB CONC 34 g/dl (33.0-37.0); MEAN PLATELET VOLUME 10.4 fl (7.4-10.4); PLATELET COUNT 148 K/mm3 (130-400); RED BLOOD COUNT 3.53 M/mm3 (4.20-5.60)
[2024-06-15 09:38] LABS: HEMATOCRIT 30.7 % (42.0-52.0)
[2024-06-15 09:45] LABS: INR 1.1 (0.8-3.0); PROTHROMBIN TIME 11.6 SECONDS (9.7-12.8)
[2024-06-15] MEDS ORDERED: FERROUSAL325 MG PO (09:52)
[2024-06-15] MEDS ORDERED: JANUVIA50 MG PO (09:52)
[2024-06-15 10:01] LABS: CALCIUM 9.1 mg/dL (8.4-10.2); CREATININE, serum 1.59 mg/dL (0.72-1.25)
[2024-06-15] MEDS ORDERED: fentaNYL 50 MCG/ML 2 ML VIAL ONE (11:59)
[2024-06-15] MEDS ORDERED: ePHEDrine 50 MG/ML VIAL ONE (12:00)
[2024-06-15] MEDS ORDERED: Succinylcholine PF 200 MG/10 ML SYRINGE IV ONE (12:00)
[2024-06-15] MEDS ORDERED: Lidocaine PF 2% (20 MG/ML) 5 ML VIAL ONE (12:00)
--- NOTE | 2024-06-15 12:11 | NUR ---
Patient to procedure,report to NURY thompson.
[2024-06-15] MEDS ORDERED: ceFAZolin 2 G in Water For Injection,Sterile 20 ML IV SCH (12:30)
[2024-06-15] MEDS ORDERED: 1/2 NS 1,000 ML IV SCH (12:30)
[2024-06-15] MEDS ORDERED: Heparin 1,000 UNITS/ML 10 ML Multi-Dose VIAL IV SCH (13:09)
--- NOTE | 2024-06-15 14:10 | NUR ---
PT ARRIVED FROM THE ELECTRIC CELL TENDER. HE WILL OPEN HIS EYE AND RESPOND WHEN HIS NAME IS CALLED AND THEN HE FALLS BACK ASLEEP. HE ARRIVES ON NO OXYGEN. HIS GROIN SITE IS VISUALIZED AND THE AREA AROUND IS PALPATED FOR HEMATOMAS. THE SAFEGUARD IS VISUALIZED AND REMAINS WITH 40ML OF AIR. HIS HEART IS PACED AT TIMES.
[2024-06-15] MEDS ORDERED: Temazepam 15 MG CAP PO PRN (15:15)
[2024-06-15] MEDS ORDERED: Dextrose (Glucose) 15 GM (4 x 3.75 GM) Chewable TABLET PACK PO PRN (15:30)
[2024-06-15] MEDS ORDERED: Dextrose 50% Water 25 GM/50 ML SYRINGE IV PRN (15:30)
[2024-06-15] MEDS ORDERED: Docusate Sodium 100 MG CAP PO PRN (15:30)
[2024-06-15] MEDS ORDERED: Glucagon 1 MG VIAL IM PRN (15:30)
[2024-06-15] MEDS ORDERED: Acetaminophen 500 MG TAB PO PRN (15:30)
--- NOTE | 2024-06-15 15:40 | NUR ---
Rn Practitioner was notified by patient's nurse that a friend, Dr. Ruggiero, wanted to meet with the social media project manager but did not express what he would like to speak about. PATSY and SW Student, Radha, met with Dr. Ruggiero and patient (whom was waking up from his procedure.) Dr. Ruggiero reported that he wanted to ensure that patient was billed correctly for his hospital stay. SW explained she was not part of the billing department but she could take his insurance cards and ensure they are on his chart to bill him. Dr. Ruggiero was holding an envelope and expressed he wanted the social media project manager to review the paperwork to see if patient is using his benefits correctly. SW reviewed the forms and it was a form for VA benefits. SW explained he would need to speak with the VA about this. Dr. Ruggiero obtained patient's wallet to get the insurance cards and proceeded to provide every card in the wallet. SW made copies of the insurance cards (Medicare A and VA). SW asked Ray if he lives in [place], he stated yes. SW asked if he lives with anyone he stated yes. SW asked if he knows what pharmacy he uses. Dr. Ruggiero stated he has his prescriptions mailed to him. SW asked if patient has one for the immediate medications to be filled. Patient stated he did not know and neither did Dr. Ruggiero. SW asked patient if he has any DME, patient stated no. SW asked about any home health services, patient and Dr. Ruggiero stated no. SW explained she would meet with patient more tomorrow. Patient stated okay. SW reviewed patient's EMR which lists a DPOA-HC appointing patient's sisters, Dayanna P# [phone] (primary) and Cecille P# [phone] (secondary). PATSY contacted PATSY Jon with the [facility], whom expressed patient is part of their primary care team and has appointments scheduled for the end of this month. Patient is 50% service connected. Patient has no home health at this time.
[2024-06-15] MEDS ORDERED: Insulin Lispro (HumaLOG) SQ SCH (17:00)
[2024-06-15] MEDS ORDERED: Atorvastatin 80 MG TAB PO SCH (21:00)
--- NOTE | 2024-06-15 22:04 | NUR ---
DRESSING ON LEG NEAR GROIN WHERE PATIENT HAD FEMORAL CANNULATION EARLIER IN THE DAY IS CLEAN DRY AND INTACT, FEM STOP DEVICE ON PATIENT. PATIENT UP IN ROOM AND WALKING AROUND, VOIDING. ASSESSED DRESSING SITE AFTER HE WAS UP AND WALKING AROUND. DRESSING STILL CLEAN DRY AND INTACT. PATIENT HAS DISCONNECTED HIMSELF FROM MONITORING EQUIPMENT AND WALKED AROUND HIS ROOM SEVERAL TIMES THIS SHIFT ALREADY. PATIENT SEEMS TO BE CONFUSED TO WHERE HE IS, AND WHY HE IS HERE, BUT IS EASILY RE-ORIENTED. PATIENT REMINDED TO USE CALL LIGHT, BUT WILL NOT USE THE CALL LIGHT, BED ALARMS PUT ON, PATIENT PUT IN YELLOW GOWN, AND FALL RISK SIGN OUTSIDE OF DOOR PATIENT IS NOT ORIENTED TO HIS OWN ABILITIES. PATIENTS GAIT IS STEADY WHEN HE GETS WALKING BUT HAS A HARD TIME FINDING HIS BALANCE HE STANDS. 1X STAND BY ASSISTANCE APPROPRIATE AT THIS TIME. 3CC OF AIR REMOVED FROM FEMSTOP, DRSG STILL CDI.
[2024-06-16] VITALS (37 sets, daily range): BP systolic 116–130; BP diastolic 56–71; PULSE 62–64; TEMP 97.5–98.1; O2SAT 89–98
[2024-06-16 05:13] LABS: BASO % 0.3 % (0.0-2.0); EOS # 0.3 K/mm3 (0.0-0.7); EOS % 4.5 % (0.0-4.0); GRAN # 4.2 K/mm3 (1.4-6.5); GRAN % 62.3 % (42.2-75.2); HEMOGLOBIN 10.1 g/dl (13.5-18.0); LYMPH # 1.7 K/mm3 (1.2-3.4); LYMPH % 25.5 % (20.0-51.0); MEAN CELL VOLUME 85 fl (80.0-100.0); MEAN CORPUSCULAR HEMOGLOBIN 29 pg (27-31); MEAN CORPUSCULAR HGB CONC 34 g/dl (33.0-37.0); MEAN PLATELET VOLUME 10.8 fl (7.4-10.4); MONO # 0.5 K/mm3 (0.1-0.6); MONO % 7.3 % (1.7-9.3); PLATELET COUNT 144 K/mm3 (130-400); RED BLOOD COUNT 3.46 M/mm3 (4.20-5.60); REDCELL DISTRIBUTION WIDTH-CV 14.7 % (11.5-14.5)
[2024-06-16 05:16] LABS: HEMATOCRIT 29.5 % (42.0-52.0)
[2024-06-16 05:29] LABS: CALCIUM 8.6 mg/dL (8.4-10.2); CREATININE, serum 1.39 mg/dL (0.72-1.25); MAGNESIUM 1.6 mg/dL (1.6-2.6)
[2024-06-16] MEDS ORDERED: Isosorbide Mononitrate CR (24-HR) 30 MG TAB PO SCH (07:00)
--- NOTE | 2024-06-16 07:00 | NUR ---
Report received from NURY Sun; patient currently sitting in bed, dressed, asking when he can go home. According to the patient, Dr. Ruggiero is going to pick him up at 0900. Patient removed his peripheral IV this morning, removed all monitoring devices, and wants to go home. Patient comes out of room constantly and is slightly confused this morning.
--- NOTE | 2024-06-16 08:00 | NUR ---
Patient has been up and dressed since 0700 this a.m.; patient was minimally cooperative with the assessment this morning and only let this nurse look at his groin site. He also let this nurse listen to his heart and lungs; all other assessment information was not able to be obtained.
[2024-06-16] MEDS ORDERED: SITAGLIPTIN 25 MG PO SCH (09:00)
[2024-06-16] MEDS ORDERED: Ferrous Sulfate 325 MG TAB PO SCH (09:00)
[2024-06-16] MEDS ORDERED: CEPHALEXIN500 M1 PO (09:26)
--- NOTE | 2024-06-16 09:34 | NUR ---
cooler worker and social work student Radha met with patient this morning. Pt lives in [place] with a roommate, Avery. [facility] [place] and sees Dr. Almodovar. Pt uses the [facility] in [place] for pharamacy. Pt has a DPOA and lists his two sisters, Dayanna (p# [phone]). who lives in [place], and Cecille (p# [phone]). who lives in [place]. Pt does not use any DME and is independent with [facility]. Pt does not drive. Pt's roommate Avery and friend Dr. Ruggiero. Discharge plan: home.
--- NOTE | 2024-06-16 09:46 | NUR ---
Initial visit; Patient thanked Metal Mixer for introducing herself and asking him how he was getting along. Patient stated his stay at our hospital has been a good one with good people and good care. Patient thanked Metal Mixer for stopping and offering God's blessings.
--- NOTE | 2024-06-16 10:40 | NUR ---
Patient discharged home this morning after being cleared by cardiology. All discharge information was thoroughly discussed with patient, as well as Dr. Ruggiero who was here to pick remover patient and take him home. Patient's groin site was CDI and the tegaderm was clean with no hematoma. All questions answered and patient ambulated out with this nurse and Dr. Ruggiero.
--- NOTE | 2024-06-16 13:38 | NUR ---
electronic instrument trades worker and student discussed home care services with patient and Dr. Ruggiero whom was present. Patient stated he did not need those services as his housemate/friend, Avery, helps him with all of his needs including but not limited to cleaning, meal prep and medications. SW was notified patient would be discharged today. PATSY observed Dr. Ruggiero and patient exit the ICU. Discharge plan: Home
[2024-06-17] MEDS ORDERED: CEPHALEXIN500 M1 PO (10:17)
== END 2024-06-16 10:29 | disposition home or self-care (01) ==
LOC: COL.RAD 08:09 → ICU 14:10 → COL.RAD 06-16 10:29
PROVIDERS: Internal Medicine Cardiovascular Disease
DX: I49.5 Sick sinus syndrome (principal); I47.10 Supraventricular tachycardia, unspecified; I44.2 Atrioventricular block, complete; E11.65 Type 2 diabetes mellitus with hyperglycemia; Z79.84 Long term (current) use of oral hypoglycemic drugs; E78.5 Hyperlipidemia, unspecified; Z79.899 Other long term (current) drug therapy; I35.0 Nonrheumatic aortic (valve) stenosis; Z79.82 Long term (current) use of aspirin; Z79.02 Long term (current) use of antithrombotics/antiplatelets; I73.9 Peripheral vascular disease, unspecified; I25.5 Ischemic cardiomyopathy; I25.10 Atherosclerotic heart disease of native coronary artery without angina pectoris; I10 Essential (primary) hypertension
CPT/HCPCS: OP; A9270-GY; C1760; C1769; C1786; C1887; C1894; J0688; J1644; J1815; J2704; J3010